=== PATIENT | female | born 1990 | race Asian ===

== ENCOUNTER 2020-05-23 10:05 | Inpatient (IN) ==
[2020-05-23] MEDS ORDERED: Lactated Ringers 1000 ml BAG 1,000 ML IV ONE ×2 (11:49→18:06)
[2020-05-23] MEDS ORDERED: Lactated Ringers 1000 ml BAG 1,000 ML IV SCH ×3 (12:00→21:00)
[2020-05-23] MEDS ORDERED: Oxytocin in LR 20 UNITS/1,000 ML BAG IVPB SCH ×2 (12:00→21:00)
[2020-05-23 12:37] LABS: ABS Lymphocytes 1.4 10^3/ul (1.0-4.8); ABS Monocytes 0.5 10^3/ul (0-0.8); ABS Neutrophils 4.8 10^3/ul (1.5-7.7); Eosinophil % 0.7 %; Hematocrit 35 % (35-47); Hemoglobin 12.8 g/dL (12.0-16.0); Lymphocyte % 20.3 %; Mean Corpuscular HGB Conc 36 g/dL (31-36); Mean Corpuscular Hemoglobin 36 pg (27-31); Mean Corpuscular Volume 100 fL (80-97); Platelet Count 187 10^3/uL (150-450); Red Blood Count 3.55 10^6 /uL (3.70-4.87); Red Cell Distribution Width 12 % (10-15); White Blood Count 6.8 10^3/uL (3.5-10.8)
[2020-05-23 12:52] LABS: Urine Benzodiazepine Screen None Detected (None Detect); Urine Cannabinoids Screen None Detected (None Detect); Urine Opiates Screen None Detected (None Detect)
[2020-05-23] MEDS ORDERED: OBEPIDURAL 250 ML EPIDURAL ONE (17:07)
[2020-05-23] MEDS ORDERED: Lactated Ringers 1000 ml BAG 500 ML IV PRN ×2 (18:06)
[2020-05-23] MEDS ORDERED: Sodium Citrate/Citric Acid LIQ 15 ML UDC PO PRN (18:06)
[2020-05-23] MEDS ORDERED: Phenylephrine 40 mcg/mL 10mL (400mcg) SYRINGE IV PUSH PRN ×2 (18:06)
[2020-05-23] MEDS ORDERED: OBEPIDURAL 250 ML EPIDURAL SCH (19:00)
[2020-05-23] MEDS ORDERED: Witch Hazel PAD JAR TOPICAL PRN (20:48)
[2020-05-23] MEDS ORDERED: Dibucaine 1% OINT 28.35 GM TUBE PR PRN (20:48)
[2020-05-23] MEDS ORDERED: Glycerin ADULT 2.4 gm SUPP PR PRN (20:48)
[2020-05-24 08:20] LABS: ABS Basophils 0.1 10^3/ul (0-0.2); ABS Eosinophils 0.1 10^3/ul (0-0.6); ABS Lymphocytes 1.6 10^3/ul (1.0-4.8); ABS Neutrophils 10.4 10^3/ul (1.5-7.7); Eosinophil % 0.5 %; Hematocrit 33 % (35-47); Hemoglobin 11.6 g/dL (12.0-16.0); Lymphocyte % 12.4 %; Mean Corpuscular HGB Conc 35 g/dL (31-36); Mean Corpuscular Hemoglobin 35 pg (27-31); Mean Corpuscular Volume 100 fL (80-97); Mean Platelet Volume 7.4 fL (7.4-10.4); Platelet Count 176 10^3/uL (150-450); Red Blood Count 3.33 10^6 /uL (3.70-4.87); Red Cell Distribution Width 13 % (10-15); White Blood Count 13.2 10^3/uL (3.5-10.8)
[2020-05-25 08:41] VITALS: BP 107/79
== END 2020-05-25 09:50 | disposition home or self-care (01) | DRG 806 ==
LOC: MCHOBOUT 10:05 → MCHOB 11:51
PROVIDERS: ADMIT Midwife; ATTEND Obstetrics & Gynecology